=== PATIENT | male | born 1940 | race Caucasian/White ===

== ENCOUNTER 2019-03-27 17:43 | Emergency (ER) | payer MEDICARE, OTHER ==
[~2019-03-27] VITALS: Ht 175.3 cm; Wt 74.4 kg
[2019-03-27 17:52] VITALS: BP 174/81
--- NOTE | 2019-03-27 19:18 | NUR ---
PT AMBULATED TO THE RESTROOM, AND TO BED #11
--- NOTE | 2019-03-27 19:23 | NUR ---
Dr. Thomas evaluating patient at bedside.
--- NOTE | 2019-03-27 19:29 | NUR ---
PT C/O OF PAINFUL URINATION AND HESITENCY X3 DAYS. PAIN LEVEL 8/10 UPON URINATION, BURNING. NO N/V/D. PT STATED "HAD A CATHETER 1 MONTH AGO" MED HX: HTN. SAFETY MEASURES IN PLACE. ERMD AT BEDSIDE
[2019-03-27 19:48] VITALS: BP 174/81
--- NOTE | 2019-03-27 19:52 | NUR ---
Patient discharged with v/s stable. Written and verbal after care instructions given and explained. PT WAS ENCOURAGED TO DRINK MORE FLUIDS. Patient alert, oriented and verbalized understanding of instructions. Ambulatory with steady gait. All questions addressed prior to discharge. ID band removed. Patient advised to follow up with PMD. Rx of FLOMAX AND CIPRO WAS given. Patient educated on indication of medication including possible reaction and side effects. Opportunity to ask questions provided and answered.
== END 2019-03-27 19:48 | disposition home or self-care (01) ==
LOC: MED 17:43
DX: R30.0 Dysuria (principal); R33.9 Retention of urine, unspecified; I10 Essential (primary) hypertension
CPT/HCPCS: 81002; 99283

== ENCOUNTER 2019-03-28 10:11 | Emergency (ER) | payer MEDICARE, OTHER ==
[~2019-03-28] VITALS: Ht 177.8 cm; Wt 71.4 kg
[2019-03-28 10:16] VITALS: BP 169/99
--- NOTE | 2019-03-28 10:20 | NUR ---
BIB SON. AAO X4 C/O DYSURIA X4 DAYS. PT REPORTS ONLY URINATING VERY LITTLE BIT WITH DIFFICULTY AND PAIN. PT REPORTS 10/10 PAIN WITH URINATION. PT DENIES HEMATURIA, TRAUMA, PENILE DISCHARGE, FEVER. PT REPORTS HE NEEDS CATHETER. PT WAS SEEN HERE YESTERDAY FOR SAME SYMTPOMS. ER TO EVALUATE PT.
--- NOTE | 2019-03-28 11:08 | NUR ---
Dr. Gifford evaluating patient at bedside.
--- NOTE | 2019-03-28 11:40 | NUR ---
UNABLE TO OBTAIN URINE AT THIS TIME THROUGH CATH. WILL TRY AGAIN LATER
--- NOTE | 2019-03-28 12:00 | NUR ---
Note rosa in EDM - 03/28/19 at 1545 by MED INSERTED JOHNSON CATHETER ORDERED. INTACT AND PATENT WITH YELLOW URINE OUTPUT VIA GRAVITY. PT TOLERATED PROCEDURE WELL.
--- NOTE | 2019-03-28 12:00 | NUR ---
INSERTED JOHNSON CATHETER ORDERED. INTACT AND PATENT. PT TOLERATED PROCEDURE WELL.
[2019-03-28] MEDS ORDERED: NACL 0.9% 1,000 ML IV ONE (12:35)
--- NOTE | 2019-03-28 13:12 | NUR ---
unable to obtain urine at this time. DR Gifford aware
[2019-03-28] MEDS ORDERED: MORPHINE SULFATE 4 MG/ML SYR IVP ONE (14:00)
--- NOTE | 2019-03-28 14:04 | NUR ---
LAB AT BEDSIDE
[2019-03-28 14:13] LABS: APPEARANCE,URINE SL CLOUDY (CLEAR); BILIRUBIN,URINE NEGATIVE (NEGATIVE); BLOOD, URINE 3+ (NEGATIVE); COLOR,URINE YELLOW (YELLOW); LEUKOCYTE ESTERASE ,URINE NEGATIVE (NEGATIVE); NITRITE, URINE NEGATIVE (NEGATIVE); UGLUCOSE NEGATIVE (NEGATIVE)
[2019-03-28 14:15] LABS: BASOPHILS % (AUTO) 0.3 % (0.0-2.0); EOSINOPHILS % (AUTO) 0.1 % (0.0-4.0); HEMATOCRIT 38.2 % (36-52); LYMPHOCYTES # (AUTO) 0.9 K/uL (2.0-11.5); LYMPHOCYTES % (AUTO) 8.8 % (20.5-51.1); MEAN CORPUSCULAR HEMOGLOBIN 32 pg (27-31); MEAN CORPUSCULAR HGB CONC 34 g/dL (33-37); MEAN CORPUSCULAR VOLUME 93.8 fL (80-94); MONOCYTES # (AUTO) 0.4 K/uL (0.8-1.0); MONOCYTES % (AUTO) 3.5 % (1.7-9.3); NEUTROPHILS # (AUTO) 9.3 K/uL (1.8-7.7); NEUTROPHILS % (AUTO) 87.3 % (42.2-75.2); PLATELET COUNT (AUTO) 191 K/uL (140-450); RED BLOOD CELL COUNT(AUTO) 4.07 MIL/uL (4.20-6.10); RED CELL DISTRIBUTION WIDTH 12.5 % (11.6-13.7); WHITE BLOOD COUNT (AUTO) 10.6 K/uL (4.8-10.8)
[2019-03-28 14:35] LABS: RBC,URINE 20-50 /HPF (0-5); WBC,URINE NONE SEEN /HPF (0-5)
[2019-03-28 14:36] LABS: URINE AMORPHOUS URATE 2+ /HPF (None Seen)
[2019-03-28 14:40] LABS: CARBON DIOXIDE 20.3 mmol/L (21-32); CHLORIDE 103 mmol/L (98-107); CREATININE 1.5 mg/dL (0.7-1.3); GLUCOSE 116 mg/dL (74-106); POTASSIUM 4.3 mmol/L (3.5-5.1); SODIUM SERUM 139 mmol/L (136-145); UREA NITROGEN, BLOOD 35 mg/dL (7-18)
[2019-03-28 14:46] LABS: ASPARTATE AMINOTRANSFERASE 32 U/L (15-37); TOTAL BILIRUBIN 0.5 mg/dL (0.0-1.0)
[2019-03-28] MEDS ORDERED: LEVOFLOXACIN 500 MG/D5W PREMIX 100 ML IV ONE (14:55)
--- NOTE | 2019-03-28 15:03 | NUR ---
Dr. Gifford evaluating patient at bedside.
--- NOTE | 2019-03-28 15:20 | NUR ---
PATIENT D/C BY DR. VALLES. AWAITING FOR LEVAQUIN TO FINISH BEFORE D/C.
--- NOTE | 2019-03-28 16:40 | NUR ---
ELEVATED BP 177/97,103 (HR), ASYMPTOMATIC, REPORTED TO DR VALLES.
[2019-03-28] MEDS ORDERED: hydrALAZINE 20 MG/ML VIAL IVP ONE (16:45)
--- NOTE | 2019-03-28 17:20 | NUR ---
REASSESSMENT OF BP IS 161/90. PT ASYMPTOMATIC.
[2019-03-28 17:37] VITALS: BP 161/90
--- NOTE | 2019-03-28 17:37 | NUR ---
Patient discharged with v/s stable. Written and verbal after care instructions given and explained. Patient alert, oriented and verbalized understanding of instructions. Ambulatory with steady gait. All questions addressed prior to discharge. ID band removed. Patient advised to follow up with PMD. Rx of PYRIDIUM, CIPROFLOXACIN HYDROCHLORIDE given. Patient educated on indication of medication including possible reaction and side effects. Opportunity to ask questions provided and answered.
== END 2019-03-28 17:37 | disposition home or self-care (01) ==
LOC: MED 10:11
DX: N39.0 Urinary tract infection, site not specified (principal); I10 Essential (primary) hypertension
CPT/HCPCS: 36415; 51702; 80053; 81001; 85025; 96365; 96375; 99284; J0360; J1956; J2270; J7030

== ENCOUNTER 2019-03-31 15:29 | Emergency (ER) | payer MEDICARE, OTHER ==
[~2019-03-31] VITALS: Ht 175.3 cm; Wt 68.0 kg
[2019-03-31 15:45] VITALS: BP 145/84
--- NOTE | 2019-03-31 16:00 | NUR ---
BIB SON C/O intermittent spasm type pain. Seen in our er March 27 for unable to void---poe catheter was placed and instructed to f/u today. Pt has seen his pmd 2 days ago and has a pending urology appt. DENIES N/V/D; SKIN IS PINK/WARM/DRY; AAOX4 WITH EVEN AND STEADY GAIT; LUNGS CLEAR BL; HR EVEN AND REGULAR; PT DENIES ANY FEVER, CP, SOB, OR COUGH AT THIS TIME; PATIENT STATES PAIN OF 5/10 AT THIS TIME; VSS; PATIENT POSITIONED FOR COMFORT; HOB ELEVATED; BEDRAILS UP X1; BED DOWN. ER MD MADE AWARE OF PT STATUS. SON IS AT BEDSIDE.
--- NOTE | 2019-03-31 16:36 | NUR ---
DR. HERNANDEZ IS AT BEDSIDE AND EVALUATING PT.
[2019-03-31 17:14] VITALS: BP 152/74
--- NOTE | 2019-03-31 17:14 | NUR ---
Patient discharged with v/s stable. Written and verbal after care instructions given and explained. Patient verbalized understanding. Ambulatory with steady gait. All questions addressed prior to discharge. Advised to follow up with PMD.
== END 2019-03-31 17:14 | disposition home or self-care (01) ==
LOC: MED 15:29
DX: R33.9 Retention of urine, unspecified (principal); N39.0 Urinary tract infection, site not specified; I10 Essential (primary) hypertension; E78.5 Hyperlipidemia, unspecified
CPT/HCPCS: 99283

== ENCOUNTER 2019-04-10 16:43 | Emergency (ER) | payer MEDICARE, OTHER ==
[~2019-04-10] VITALS: Ht 175.3 cm; Wt 69.4 kg
[2019-04-10 16:48] VITALS: BP 140/74
[2019-04-10] MEDS ORDERED: ASPI-1718 PO (16:56)
[2019-04-10] MEDS ORDERED: TAMS0.4C96 PO (16:56)
[2019-04-10] MEDS ORDERED: CIPR500T4 PO (16:56)
[2019-04-10] MEDS ORDERED: BENA40TA PO (16:56)
[2019-04-10] MEDS ORDERED: FINA5TAB1 PO (16:56)
[2019-04-10] MEDS ORDERED: ORE25 PO (16:56)
[2019-04-10] MEDS ORDERED: ACETAMINOPHEN 325 MG TAB PO ONE (17:00)
--- NOTE | 2019-04-10 17:30 | NUR ---
PT BIB SON WITH C/O PAIN ON JOHNSON CATH SITE AND FEVER, WAS AT PCP TODAY AND REFERRED TO GO TO ER. PT WITH JOHNSON CATH IN PLACE WITH LEG BAG FR 16/10CC, URINE YELLOW, CLOUDY, NO ODOR NOTED. AAOX4, RR EVEN UNLABORED, NO C/O N/V/D, WILL CONTINUE MONITOR CLOSELY, DR. LEYVA MADE AWARE. BED IN LOW POSITION.
[2019-04-10 17:37] LABS: BASOPHILS % (AUTO) 0.2 % (0.0-2.0); EOSINOPHILS % (AUTO) 0.1 % (0.0-4.0); HEMATOCRIT 32.7 % (36-52); HEMOGLOBIN 11.2 g/dL (12.0-18.0); LYMPHOCYTES % (AUTO) 7.3 % (20.5-51.1); MEAN CORPUSCULAR HEMOGLOBIN 32 pg (27-31); MEAN CORPUSCULAR HGB CONC 34 g/dL (33-37); MONOCYTES # (AUTO) 0.6 K/uL (0.8-1.0); MONOCYTES % (AUTO) 4.9 % (1.7-9.3); NEUTROPHILS # (AUTO) 11.4 K/uL (1.8-7.7); NEUTROPHILS % (AUTO) 87.5 % (42.2-75.2); PLATELET COUNT (AUTO) 244 K/uL (140-450); RED BLOOD CELL COUNT(AUTO) 3.52 MIL/uL (4.20-6.10); RED CELL DISTRIBUTION WIDTH 12.2 % (11.6-13.7); WHITE BLOOD COUNT (AUTO) 13.1 K/uL (4.8-10.8)
[2019-04-10 17:45] LABS: ANION GAP 15.2 (8-16); CARBON DIOXIDE 21.9 mmol/L (21-32); CHLORIDE 101 mmol/L (98-107); CREATININE 1.4 mg/dL (0.7-1.3); GLUCOSE 164 mg/dL (74-106); POTASSIUM 4.1 mmol/L (3.5-5.1); SODIUM SERUM 134 mmol/L (136-145); UREA NITROGEN, BLOOD 35 mg/dL (7-18)
[2019-04-10 17:50] LABS: ALBUMIN 3.5 g/dL (3.4-5.0); ASPARTATE AMINOTRANSFERASE 25 U/L (15-37); TOTAL BILIRUBIN 0.4 mg/dL (0.0-1.0)
[2019-04-10] MEDS ORDERED: cefTRIAXone 1,000 MG VIAL ONE (18:01)
[2019-04-10 18:38] LABS: APPEARANCE,URINE SL CLOUDY (CLEAR); BILIRUBIN,URINE NEGATIVE (NEGATIVE); BLOOD, URINE 3+ (NEGATIVE); COLOR,URINE YELLOW (YELLOW); LEUKOCYTE ESTERASE ,URINE 3+ (NEGATIVE); NITRITE, URINE POSITIVE (NEGATIVE); PH,URINE 5.5 (5.0-9.0); UGLUCOSE NEGATIVE (NEGATIVE)
[2019-04-10 18:43] LABS: RBC,URINE TOO NUMEROUS TO COUN /HPF (0-5); WBC,URINE TOO MANY TO COUNT /HPF (0-5)
--- NOTE | 2019-04-10 19:00 | NUR ---
Patient discharged with vss. Written and verbal after care instructions given Explained to patient and son. Patient alert, oriented and verbalized understanding of instructions. Ambulatory with to car. All questions addressed prior to discharge. ID band removed. Patient advised to follow up with PMD. Rx of keflex 500mg given. Butt cath intact. draining adequate amount of urine. Patient educated on indication of medication including possible reaction and side effects. Opportunity to ask questions provided and answered.
[2019-04-10 19:01] VITALS: BP 138/74
== END 2019-04-10 19:00 | disposition home or self-care (01) ==
LOC: MED 16:43
DX: N39.0 Urinary tract infection, site not specified (principal); I10 Essential (primary) hypertension; E78.5 Hyperlipidemia, unspecified; Z79.82 Long term (current) use of aspirin; Z79.2 Long term (current) use of antibiotics; Z79.899 Other long term (current) drug therapy
CPT/HCPCS: 36415; 80053; 81001; 85025; 87086; 87186; 96365; 99283; J0696; J7060; 99284

== ENCOUNTER 2019-06-22 03:58 | Emergency (ER) | payer MEDICARE, OTHER ==
[~2019-06-22] VITALS: Ht 175.3 cm; Wt 74.4 kg
[~2019-06-22 03:58] MED LIST: ASPI-1718 PO; BENA40TA PO; CIPR500T4 PO; FINA5TAB1 PO; ORE25 PO; TAMS0.4C96 PO
[2019-06-22 04:01] VITALS: BP 218/107
[2019-06-22 05:45] VITALS: BP 186/90
== END 2019-06-22 05:45 | disposition home or self-care (01) ==
LOC: MED 03:58
DX: R33.9 Retention of urine, unspecified (principal); I10 Essential (primary) hypertension; Z98.890 Other specified postprocedural states; Z79.82 Long term (current) use of aspirin; Z79.2 Long term (current) use of antibiotics; Z79.899 Other long term (current) drug therapy
CPT/HCPCS: 51702; 81002; 99284

== ENCOUNTER 2019-07-20 13:22 | Emergency (ER) | payer MEDICARE, OTHER ==
[~2019-07-20] VITALS: Ht 177.8 cm; Wt 74.4 kg
[2019-07-20 13:34] VITALS: BP 191/94
--- NOTE | 2019-07-20 13:42 | NUR ---
WAIT AT LOBBY.
--- NOTE | 2019-07-20 14:38 | NUR ---
PT BIB SELF FOR URINARY RETENTION. PT STATES HE URINATED X1 TODAY AT 1130 BUT HAS BEEN UNABLE TO GO SINCE THEN. PT STATES HE HAS PAIN TO LOWER ABD/SUPRAPUBIC AREA. PT STATES HE HAS APPOINTMENT WITH UROLOGIST ON THE FOR BPH. PT AWAKE AND ALERT, APPEARS TO BE IN NO ACUTE DISTRESS.
--- NOTE | 2019-07-20 14:51 | NUR ---
DR. ALFARO EVALUATING PT AT BEDSIDE.
--- NOTE | 2019-07-20 15:20 | NUR ---
PT VOIDED SMALL AMOUNT ~20 ML WHICH WAS SENT TO LAB FOR UA.
[2019-07-20 15:33] LABS: APPEARANCE,URINE CLEAR (CLEAR); BILIRUBIN,URINE NEGATIVE (NEGATIVE); BLOOD, URINE 3+ (NEGATIVE); COLOR,URINE YELLOW (YELLOW); LEUKOCYTE ESTERASE ,URINE NEGATIVE (NEGATIVE); NITRITE, URINE NEGATIVE (NEGATIVE); UGLUCOSE NEGATIVE (NEGATIVE)
[2019-07-20] MEDS ORDERED: LIDOCAINE VISCOUS 2% 20 ML UDC ONE (15:33)
--- NOTE | 2019-07-20 15:46 | NUR ---
UNABLE TO INSERT JOHNSON CATH. DR. ALFARO AWARE; PER DR. ALFARO, KEEP ATTEMPTING TO INSERT JOHNSON. ROBERTO VILLALOBOS AT BEDSIDE FOR JOHNSON INSERTION AT THIS TIME.
--- NOTE | 2019-07-20 15:54 | NUR ---
UNABLE TO INSERT JOHNSON, MULTIPLE ATTEMPTS MADE W/ VARIOUS SIZES OF COUDES AVAILBLE IN ER, DR ALFARO MADE AWARE.
[2019-07-20 16:07] LABS: BASOPHILS % (AUTO) 0.3 % (0.0-2.0); EOSINOPHILS % (AUTO) 0.1 % (0.0-4.0); HEMOGLOBIN 12.9 g/dL (12.0-18.0); LYMPHOCYTES # (AUTO) 1.4 K/uL (2.0-11.5); LYMPHOCYTES % (AUTO) 20.9 % (20.5-51.1); MEAN CORPUSCULAR HEMOGLOBIN 31 pg (27-31); MEAN CORPUSCULAR HGB CONC 34 g/dL (33-37); MEAN CORPUSCULAR VOLUME 92.1 fL (80-94); MONOCYTES # (AUTO) 0.4 K/uL (0.8-1.0); MONOCYTES % (AUTO) 6.2 % (1.7-9.3); NEUTROPHILS % (AUTO) 72.5 % (42.2-75.2); PLATELET COUNT (AUTO) 198 K/uL (140-450); RED BLOOD CELL COUNT(AUTO) 4.12 MIL/uL (4.20-6.10); RED CELL DISTRIBUTION WIDTH 12.6 % (11.6-13.7); WHITE BLOOD COUNT (AUTO) 6.9 K/uL (4.8-10.8)
[2019-07-20 16:13] LABS: WBC,URINE 0-5 /HPF (0-5)
--- NOTE | 2019-07-20 17:13 | NUR ---
PT VOIDED 200 ML CLEAR YELLOW URINE IN URINAL. NOTIFIED DR. ALFARO.
[2019-07-20 18:17] LABS: ANION GAP 16.9 (8-16); CHLORIDE 101 mmol/L (98-107); GLUCOSE 101 mg/dL (74-106); POTASSIUM 4.9 mmol/L (3.5-5.1); SODIUM SERUM 138 mmol/L (136-145)
[2019-07-20 18:18] LABS: ALBUMIN 4.1 g/dL (3.4-5.0); ASPARTATE AMINOTRANSFERASE 24 U/L (15-37); CREATININE 1.3 mg/dL (0.7-1.3); TOTAL BILIRUBIN 0.4 mg/dL (0.0-1.0); UREA NITROGEN, BLOOD 28 mg/dL (7-18)
--- NOTE | 2019-07-20 19:11 | NUR ---
Patient discharged with v/s stable. Written and verbal after care instructions given and explained. Patient alert, oriented and verbalized understanding of instructions. Ambulatory with steady gait. All questions addressed prior to discharge. ID band removed. Patient advised to follow up with PMD. Rx of FLOMAX given. Patient educated on indication of medication including possible reaction and side effects. Opportunity to ask questions provided and answered. SON AT BEDSIDE TO DRIVE PATIENT HOME. 600 ML CLEAR YELLOW URINE IN URINAL AT THIS TIME.
[2019-07-20 19:14] VITALS: BP 138/72
== END 2019-07-20 19:11 | disposition home or self-care (01) ==
LOC: MED 13:22
DX: N40.0 Benign prostatic hyperplasia without lower urinary tract symptoms (principal); I10 Essential (primary) hypertension; Z98.890 Other specified postprocedural states; Z79.82 Long term (current) use of aspirin; Z79.899 Other long term (current) drug therapy
CPT/HCPCS: 36415; 80053; 81001; 84154; 85025; 99284

== ENCOUNTER 2020-09-04 11:38 | Emergency (ER) | payer MEDICARE, OTHER, SELFPAY ==
[~2020-09-04] VITALS: Ht 177.8 cm; Wt 75.7 kg
[~2020-09-04 11:38] MED LIST changes: -ASPI-1718 PO; +ASPI-1822 PO
[2020-09-04 12:03] VITALS: BP_SYST 173; BP_SYST 182; BP_DIAS 79; BP_DIAS 88
[2020-09-04 13:24] LABS: BASOPHILS % (AUTO) 0.8 % (0.0-2.0); EOSINOPHILS % (AUTO) 0.2 % (0.0-4.0); HEMOGLOBIN 14.2 g/dL (12.0-18.0); LYMPHOCYTES # (AUTO) 1.1 K/uL (2.0-11.5); LYMPHOCYTES % (AUTO) 20.5 % (20.5-51.1); MEAN CORPUSCULAR HEMOGLOBIN 33 pg (27-31); MEAN CORPUSCULAR HGB CONC 35 g/dL (33-37); MONOCYTES # (AUTO) 0.6 K/uL (0.8-1.0); MONOCYTES % (AUTO) 10.2 % (1.7-9.3); NEUTROPHILS # (AUTO) 3.8 K/uL (1.8-7.7); NEUTROPHILS % (AUTO) 68.3 % (42.2-75.2); PLATELET COUNT (AUTO) 251 K/uL (140-450); RED BLOOD CELL COUNT(AUTO) 4.37 MIL/uL (4.20-6.10); RED CELL DISTRIBUTION WIDTH 12.5 % (11.6-13.7); WHITE BLOOD COUNT (AUTO) 5.6 K/uL (4.8-10.8)
[2020-09-04 13:38] LABS: ALBUMIN 3.5 g/dL (3.4-5.0); ANION GAP 14.5 (8-16); ASPARTATE AMINOTRANSFERASE 100 U/L (15-37); CARBON DIOXIDE 26.5 mmol/L (21-32); CHLORIDE 98 mmol/L (98-107); CREATININE 1.4 mg/dL (0.6-1.3); GLUCOSE 113 mg/dL (74-106); LIPASE 280 U/L (73-393); SODIUM SERUM 135 mmol/L (136-145); TOTAL BILIRUBIN 0.4 mg/dL (0.0-1.0); UREA NITROGEN, BLOOD 44 mg/dL (7-18)
--- NOTE | 2020-09-04 14:43 | NUR ---
Patient discharged with v/s stable. Written and verbal after care instructions given and explained. Patient alert, oriented and verbalized understanding of instructions. Ambulatory with steady gait. All questions addressed prior to discharge. ID band removed. Patient advised to follow up with PMD. Rx of Mylanta and Tylenol given. Patient educated on indication of medication including possible reaction and side effects. Opportunity to ask questions provided and answered. Addendum: 09/04/20 at 1444 by [facility] No nursing care provided in our ER.
== END 2020-09-04 14:43 | disposition home or self-care (01) ==
LOC: MED 11:38
DX: R10.13 Epigastric pain (principal); R11.0 Nausea; R63.4 Abnormal weight loss; I10 Essential (primary) hypertension; Z79.899 Other long term (current) drug therapy; Z79.82 Long term (current) use of aspirin
CPT/HCPCS: 36415; 71045; 80053; 83690; 84484; 85025; 93005; 99284